=== PATIENT | male | born 1990 | race Hispanic/Latino ===

== ENCOUNTER 2017-02-21 08:16 | Day surgery (SDC) | payer OTHER ==
[2017-02-13 16:01] VITALS: BMI 25.7
[2017-02-21] MEDS ORDERED: Lidocaine 2% Inj (20ml) ONE (10:41)
[2017-02-21] MEDS ORDERED: Propofol 10 mg/ml Inj (20 ML) ONE (10:42)
[2017-02-21] MEDS ORDERED: Sodium Chloride 0.9% 1,000 ML IV SCH (11:15)
[2017-02-21 11:58] VITALS: BP 132/71; PULSE 67; RESP 16; TEMP 97.9; O2SAT 100
== END 2017-02-21 12:06 | disposition home or self-care (01) ==
LOC: ENDO 08:16
PROVIDERS: ATTEND Internal Medicine Gastroenterology
DX: K21.0 Gastro-esophageal reflux disease with esophagitis (principal); K29.50 Unspecified chronic gastritis without bleeding
CPT/HCPCS: 43239; 88305; 88342; J2704; J7040 ×2